=== PATIENT | female | born 1965 | race Caucasian/White ===

== ENCOUNTER 2020-06-27 16:17 | Emergency (ER) | payer SELFPAY ==
[~2020-06-27] VITALS: Wt 81.6 kg
[~2020-06-27 16:17] MED LIST: DARVOCET N 1001 TAB PO; FLEXERIL10 MG PO; KEFLEX500 MG PO; MELATONIN1 M1; METICORTEN1 MG PO; MOTRIN800 MG PO; MULTIVITAMIN FO1 CAP PO; NAPROSYN500 MG PO; OXYCODONE5 M1; TRIMOX500 MG PO; ULTRAM50 MG PO; VENTOLIN0.09 MG/AC INH; VICODIN 5/500 505 MG PO; VITAMIN B12; ZYVOX100 MG/5 M PO; [UNRECOGNIZED DRUG - OTHER] PO
[2020-06-27 16:30] VITALS: BP 135/68
[2020-06-27] MEDS ORDERED: NAPROSYN500 MG PO (16:36)
[2020-06-27] MEDS ORDERED: AMOXICILLIN500 M2 PO (16:36)
== END 2020-06-27 16:39 | disposition home or self-care (01) ==
LOC: ED 16:17
DX: K08.89 Other specified disorders of teeth and supporting structures (principal); M19.90 Unspecified osteoarthritis, unspecified site; Z79.899 Other long term (current) drug therapy

== ENCOUNTER 2021-09-24 11:55 | Emergency (ER) | payer OTHER ==
[~2021-09-24] VITALS: Wt 83.9 kg
[~2021-09-24 11:55] MED LIST changes: +AMOXICILLIN500 M2 PO
[2021-09-24 12:13] VITALS: BP 139/73
[2021-09-24] MEDS ORDERED: IBUPROFEN600 MG PO (13:45)
[2021-09-24] MEDS ORDERED: PENICILLIN VK500 MG PO (13:45)
== END 2021-09-24 14:06 | disposition home or self-care (01) ==
LOC: ED 11:55
DX: K04.7 Periapical abscess without sinus (principal); Z79.899 Other long term (current) drug therapy; Z98.51 Tubal ligation status

== ENCOUNTER 2022-04-02 09:00 | Emergency (ER) | payer OTHER ==
[~2022-04-02] VITALS: Wt 82.6 kg
[~2022-04-02 09:00] MED LIST changes: +IBUPROFEN600 MG PO; +PENICILLIN VK500 MG PO
[2022-04-02 09:23] LABS: BASO # 0.1 10*3/uL (0.0-0.1); BASO % 0.7 % (0.0-1.0); EOS # 0.1 10*3/uL (0.0-0.4); EOS % 1.3 % (1.0-4.0); LYMPH # 1.8 10*3/uL (1.3-4.4); LYMPH % 18.4 % (27.0-41.0); MEAN CELL VOLUME 86.8 fl (81.0-99.0); MEAN CORPUSCULAR HGB CONC 32.3 g/dl (33.0-37.0); MEAN PLATELET VOLUME 9.8 fl (9.6-12.3); MONO # 0.7 10*3/uL (0.1-1.0); MONO % 7.4 % (3.0-9.0); NEUT # 6.9 10*3/uL (2.3-7.9); PLATELET COUNT AUTOMATED 283 10*3/uL (130-400); RED BLOOD COUNT 4.61 10*6/uL (4.10-5.10); RED CELL DISTRI WIDTH 12.9 % (0-14.5); WHITE BLOOD COUNT 9.6 10*3/uL (4.8-10.8)
[2022-04-02 09:34] LABS: ACT PARTIAL THROMBO TIME 31.2 SECONDS (20.0-32.1)
[2022-04-02 09:42] LABS: ALKALINE PHOSPHATASE 94 U/L (45-117); BUN 9 mg/dl (7-24); CHLORIDE 103 mmol/L (98-107); POTASSIUM 3.6 mmol/L (3.5-5.1); SGOT/AST 16 IU/L (3-35); SGPT/ALT 8 U/L (12-78); SODIUM 137 mmol/L (136-145); TOTAL PROTEIN 7.4 gm/dL (6.4-8.2)
[2022-04-02 20:32] VITALS: BP 111/68
== END 2022-04-02 21:47 | disposition short-term general hospital (02) ==
LOC: ED 09:00
PROVIDERS: Emergency Medicine
DX: R91.8 Other nonspecific abnormal finding of lung field (principal); R04.2 Hemoptysis; R05.9 Cough, unspecified; R07.89 Other chest pain; R11.0 Nausea; F17.200 Nicotine dependence, unspecified, uncomplicated; Z79.899 Other long term (current) drug therapy; Z79.2 Long term (current) use of antibiotics; Z98.51 Tubal ligation status

== ENCOUNTER 2022-06-04 14:51 | Emergency (ER) | payer OTHER ==
[~2022-06-04] VITALS: Ht 172.7 cm; Wt 72.6 kg
[2022-06-04 16:05] LABS: HEMATOCRIT 38.3 % (37.0-47.0); MANUAL DIFF REFLEX YES; MEAN CELL VOLUME 85.1 fl (81.0-99.0); MEAN CORPUSCULAR HGB 28.2 pg (27.0-31.0); MEAN CORPUSCULAR HGB CONC 33.2 g/dl (33.0-37.0); MEAN PLATELET VOLUME 9.8 fl (9.6-12.3); PLATELET COUNT AUTOMATED 457 10*3/uL (130-400); RED CELL DISTRI WIDTH 13.7 % (0-14.5); WHITE BLOOD COUNT 17.6 10*3/uL (4.8-10.8)
[2022-06-04 16:14] LABS: INTERNATIONAL NORM RATIO 1.2 (2.0-3.5)
[2022-06-04 16:22] LABS: ALKALINE PHOSPHATASE 94 U/L (45-117); BUN 15 mg/dl (7-24); CHLORIDE 99 mmol/L (98-107); CREATININE 0.79 mg/dL (0.55-1.02); POTASSIUM 3.3 mmol/L (3.5-5.1); SGOT/AST 15 IU/L (3-35); SGPT/ALT 11 U/L (12-78); SODIUM 134 mmol/L (136-145); TOTAL PROTEIN 6.8 gm/dL (6.4-8.2)
[2022-06-04 16:27] LABS: PLATELET SUFFICIENCY HIGH (NORMAL); TOTAL CELLS COUNTED 100 #CELLS; TOXIC GRANULATION SLIGHT
[2022-06-04 20:22] VITALS: BP 92/57
== END 2022-06-04 21:55 | disposition short-term general hospital (02) ==
LOC: ED 14:51
PROVIDERS: Physician Assistant
DX: R91.8 Other nonspecific abnormal finding of lung field (principal)

== ENCOUNTER → 2022-06-22 | Day surgery (SDC) | payer OTHER ==
[~2022-06-22] VITALS: Ht 170.1 cm; Wt 70.3 kg
[~2022-06-22] MED LIST changes: +HYDROCODONE-AC1 EAC1 PO
[2022-06-22 10:42] VITALS: BP 92/56
[2022-06-22 11:30] VITALS: BP 82/56
[2022-06-22 11:45] VITALS: BP 88/50
[2022-06-22 12:00] VITALS: BP 78/56
== END | disposition home or self-care (01) ==
LOC: SDC 06-04 13:15
PROVIDERS: ATTEND Surgery
DX: C34.90 Malignant neoplasm of unspecified part of unspecified bronchus or lung (principal); M19.90 Unspecified osteoarthritis, unspecified site; J44.9 Chronic obstructive pulmonary disease, unspecified; F32.9 Major depressive disorder, single episode, unspecified

== ENCOUNTER → 2022-06-22 | Outpatient (CLI) | payer OTHER ==
[2022-06-22 10:02] LABS: HEMATOCRIT 29.2 % (37.0-47.0); MEAN CELL VOLUME 81.6 fl (81.0-99.0); MEAN CORPUSCULAR HGB 27.7 pg (27.0-31.0); MEAN CORPUSCULAR HGB CONC 33.9 g/dl (33.0-37.0); MEAN PLATELET VOLUME 9.8 fl (9.6-12.3); PLATELET COUNT AUTOMATED 187 10*3/uL (130-400); RED BLOOD COUNT 3.58 10*6/uL (4.10-5.10); RED CELL DISTRI WIDTH 13.3 % (0-14.5); WHITE BLOOD COUNT 2.4 10*3/uL (4.8-10.8)
[2022-06-22 10:06] LABS: MANUAL DIFF REFLEX YES
[2022-06-22 10:33] LABS: BUN 12 mg/dl (7-24); CHLORIDE 94 mmol/L (98-107); POTASSIUM 3.3 mmol/L (3.5-5.1); SODIUM 130 mmol/L (136-145)
[2022-06-22 10:35] LABS: ALKALINE PHOSPHATASE 97 U/L (45-117); SGPT/ALT 23 U/L (12-78); TOTAL PROTEIN 7.5 gm/dL (6.4-8.2)
[2022-06-22 11:12] LABS: PLATELET SUFFICIENCY NORMAL (NORMAL); TOTAL CELLS COUNTED 100 #CELLS
== END | disposition home or self-care (01) ==
LOC: LAB 09:32
PROVIDERS: ATTEND Internal Medicine Hematology & Oncology
DX: C34.12 Malignant neoplasm of upper lobe, left bronchus or lung (principal); R91.8 Other nonspecific abnormal finding of lung field

== ENCOUNTER → 2022-07-02 | Outpatient (CLI) | payer OTHER ==
[2022-07-02 14:19] LABS: BASO # 0.1 10*3/uL (0.0-0.1); BASO % 0.7 % (0.0-1.0); HEMATOCRIT 34.3 % (37.0-47.0); LYMPH # 2.1 10*3/uL (1.3-4.4); LYMPH % 24.9 % (27.0-41.0); MEAN CELL VOLUME 84.3 fl (81.0-99.0); MEAN CORPUSCULAR HGB 27.5 pg (27.0-31.0); MEAN CORPUSCULAR HGB CONC 32.7 g/dl (33.0-37.0); MEAN PLATELET VOLUME 9.1 fl (9.6-12.3); MONO # 0.7 10*3/uL (0.1-1.0); MONO % 8.4 % (3.0-9.0); NEUT # 5.5 10*3/uL (2.3-7.9); NEUT % 65.2 % (47.0-73.0); PLATELET COUNT AUTOMATED 688 10*3/uL (130-400); RED BLOOD COUNT 4.07 10*6/uL (4.10-5.10); RED CELL DISTRI WIDTH 15.4 % (0-14.5); WHITE BLOOD COUNT 8.4 10*3/uL (4.8-10.8)
[2022-07-02 14:35] LABS: ALKALINE PHOSPHATASE 121 U/L (46-116); BUN 5 mg/dl (9-23); CHLORIDE 98 mmol/L (98-107); CREATININE 0.64 mg/dL (0.55-1.02); POTASSIUM 3.1 mmol/L (3.4-5.1); SGPT/ALT 10 U/L (10-49); SODIUM 137 mmol/L (136-145); TOTAL PROTEIN 6.7 gm/dL (6.0-8.0)
== END | disposition home or self-care (01) ==
LOC: LAB 13:19
PROVIDERS: ATTEND Internal Medicine
DX: C34.12 Malignant neoplasm of upper lobe, left bronchus or lung (principal)

== ENCOUNTER 2022-08-03 07:34 | Emergency (ER) | payer OTHER ==
[~2022-08-03] VITALS: Ht 170.1 cm; Wt 68.0 kg
[2022-08-03 07:47] VITALS: BP 91/55
[2022-08-03 08:21] LABS: HEMATOCRIT 25.1 % (37.0-47.0); MEAN CELL VOLUME 87.8 fl (81.0-99.0); MEAN CORPUSCULAR HGB CONC 31.9 g/dl (33.0-37.0); MEAN PLATELET VOLUME 9.2 fl (9.6-12.3); PLATELET COUNT AUTOMATED 208 10*3/uL (130-400); RED BLOOD COUNT 2.86 10*6/uL (4.10-5.10); WHITE BLOOD COUNT 9.6 10*3/uL (4.8-10.8)
[2022-08-03 08:26] LABS: MANUAL DIFF REFLEX YES
[2022-08-03 08:39] LABS: ALKALINE PHOSPHATASE 66 U/L (46-116); BUN 14 mg/dl (9-23); CHLORIDE 97 mmol/L (98-107); POTASSIUM 3.1 mmol/L (3.4-5.1)
[2022-08-03 08:43] LABS: OVALOCYTES FEW; PLATELET SUFFICIENCY NORMAL (NORMAL); POLYCHROMASIA SLIGHT; SCHISTOCYTES FEW; TOTAL CELLS COUNTED 100 #CELLS; VACUOLATION OF NEUTROPHILS SLIGHT
[2022-08-03 08:46] LABS: SGPT/ALT < 7 U/L (10-49)
[2022-08-03] MEDS ORDERED: TAMIFLU 75MG CA75 MG PO (10:03)
== END 2022-08-03 11:07 | disposition home or self-care (01) ==
LOC: ED 07:34
PROVIDERS: Student in an Organized Health Care Education/Training Program
DX: J10.1 Influenza due to other identified influenza virus with other respiratory manifestations (principal); Z20.822 Contact with and (suspected) exposure to COVID-19; Z98.51 Tubal ligation status